=== PATIENT | female | born 1975 | race African-American/Black ===

== ENCOUNTER 2016-10-16 10:22 | Emergency (ER) | payer OTHER ==
[2016-10-16 10:35] VITALS: BP 169/120; PULSE 90; TEMP 97.7; BMI 39.9
--- NOTE | 2016-10-16 11:13 | PDOC ---
History of Present Illness - History of Present Illness Initial Comments: 10/16/16 11:17 The patient is a 41 year old female, with a significant past medical history of asthma, who presents to the emergency department with sinus congestion, itchy sore throat, cough, and difficulty breathing for 4 days. The patient reports being seen at [facility] ED a few days ago, where she was discharged home with a new inhaler, prednisone, and claritin D. She denies alleviation of her symptoms with the prescribed medication. She denies use of ibuprofen, however, reports taking a Tylenol today for a headache. The patient reports her chest and abdomen hurts from coughing. She also reports using a nebulizer treatment before bed last night with little to no alleviation. She denies chest pain, shortness of breath, and dizziness. She denies fever, chills, nausea, vomit, diarrhea and constipation. She denies dysuria, frequency , urgency and hematuria. Allergies: NKDA <Kiara Boogie - Last Filed: 10/16/16 11:17> <Jessica Sanchez - Last Filed: 10/18/16 17:29> - General Chief Complaint: Respiratory Stated Complaint: SOB (ASTHMA) Time Seen by Provider: 10/16/16 10:40 Past History <Kiara Boogie - Last Filed: 10/16/16 11:17> - Past Medical History Asthma: Yes - Psycho/Social/Smoking Cessation Hx Anxiety: No Suicidal Ideation: No Smoking History: Current every day smoker Number of Cigarettes Smoked Daily: 6 Information on smoking cessation initiated: No Hx Alcohol Use: Yes (SOCIAL) Drug/Substance Use Hx: No Substance Use Type: None <Jessica Sanchez - Last Filed: 10/18/16 17:29> - Past Medical History Allergies/Adverse Reactions: Allergies Allergy/AdvReac Type Severity Reaction Status Date / Time ZUCCHINI Allergy Itching Uncoded 10/16/16 10:35 Home Medications: Ambulatory Orders Azithromycin [Zithromax 250mg Tablets -] 250 mg PO UTDICT #6 tab 10/16/16 Triamcinolone Acetonide [Nasacort] 2 spray NS DAILY #1 bottle 10/16/16 Review of Systems - Review of Systems Able to Perform ROS?: Yes Comments:: 10/16/16 11:17 GENERAL/CONSTITUTIONAL: No fever or chills. No weakness. HEAD, EYES, EARS, NOSE AND THROAT: (+) sore throat. No change in vision. No ear pain or discharge. CARDIOVASCULAR: No chest pain or shortness of breath. RESPIRATORY: (+) cough and difficulty breathing, No wheezing, or hemoptysis. GASTROINTESTINAL: No nausea, vomiting, diarrhea or constipation. GENITOURINARY: No dysuria, frequency, or change in urination. MUSCULOSKELETAL: (+) abdominal pain and back pain secondary to cough. No joint swelling or pain. No muscle swelling. No neck pain. SKIN: No rash NEUROLOGIC: (+) mild headache. No vertigo, loss of consciousness, or change in strength/sensation. ENDOCRINE: No increased thirst. No abnormal weight change. HEMATOLOGIC/LYMPHATIC: No anemia, easy bleeding, or history of blood clots. ALLERGIC/IMMUNOLOGIC: No hives or skin allergy. <Kiara Boogie - Last Filed: 10/16/16 11:17> *Physical Exam - Vital Signs Last Vital Signs Temp Pulse Resp BP Pulse Ox 97.7 F 90 24 169/120 96 10/16/16 10:32 10/16/16 10:32 10/16/16 10:32 10/16/16 10:32 10/16/16 10:32 <Kiara Boogie - Last Filed: 10/16/16 11:17> - Vital Signs Last Vital Signs Temp Pulse Resp BP Pulse Ox 97.7 F 90 24 169/120 96 10/16/16 10:32 10/16/16 10:32 10/16/16 10:32 10/16/16 10:32 10/16/16 10:32 - Physical Exam Comments: GENERAL: Awake, alert, and fully oriented, in no acute distress HEAD: No signs of trauma EYES: PERRLA, EOMI, sclera anicteric, conjunctiva clear ENT: Auricles normal inspection, hearing grossly normal, nares patent, oropharynx clear without exudates. Moist mucosa NECK: Normal ROM, supple, no lymphadenopathy, JVD, or masses LUNGS: Intermittent hacking, productive cough. Good air entry B/L. With B/L exp wheezes and prolonged exp phase. Scattered rhonchi. HEART: Regular rate and rhythm, normal S1 and S2, no murmurs, rubs or gallops ABDOMEN: Soft, nontender, normoactive bowel sounds. No guarding, no rebound. No masses EXTREMITIES: Normal range of motion, no edema. No clubbing or cyanosis. No cords, erythema, or tenderness NEUROLOGICAL: Cranial nerves II through XII grossly intact. Normal speech, normal gait SKIN: Warm, Dry, normal turgor, no rashes or lesions noted. <Jessica Sanchez - Last Filed: 10/18/16 17:29> ED Treatment Course - LABORATORY CBC & Chemistry Diagram: 10/16/16 11:15 10/16/16 11:15 <Jessica Sanchez - Last Filed: 10/18/16 17:29> Medical Decision Making - Medical Decision Making 10/16/16 12:47 Called to bedside by patient. L hand IV infiltrated, with small swollen area just above the catheter. Warm pack applied. IV removed. IV fluid had just finished. 10/16/16 14:21 Pt reports improvement in symptoms with IVF, medication. Wheezing has improved. Stable for DC home with outpatient f/u. <Jessica Sanchez - Last Filed: 10/18/16 17:29> *DC/Admit/Observation/Transfer - Attestations Scribe Attestion: 10/16/16 11:18 Documentation prepared by Kiara Boogie, acting as medical radiation dosimetrist for Jessica Sanchez MD <Kiara Boogie - Last Filed: 10/16/16 11:17> - Discharge Dispostion Admit: No <Jessica Sanchez - Last Filed: 10/18/16 17:29> Diagnosis at time of Disposition: Bronchitis - Discharge Dispostion Disposition: HOME Condition at time of disposition: Stable - Prescriptions Prescriptions: Triamcinolone Acetonide [Nasacort] 2 spray NS DAILY #1 bottle Azithromycin [Zithromax 250mg Tablets -] 250 mg PO UTDICT #6 tab - Referrals Referrals: Kaylah Franco [Primary Care Provider] - - Patient Instructions Printed Discharge Instructions: DI for Acute Bronchitis
[2016-10-16] MEDS ORDERED: KETOROLAC TROMETHAMINE 30 MG/1 ML VIAL IVPUSH ONE (11:14)
[2016-10-16] MEDS ORDERED: guaiFENesin/CODEINE 10 ML UNIT-DOSE CUPS PO ONE (11:14)
[2016-10-16] MEDS ORDERED: SODIUM CHLORIDE 1,000 ML IV STA (11:14)
[2016-10-16] MEDS ORDERED: guaiFENesin/CODEINE 5 ML UNIT-DOSE CUPS PO ONE (11:41)
[2016-10-16] MEDS ORDERED: KETOROLAC TROMETHAMINE 30 MG/1 ML VIAL ONE ×2 (11:41)
[2016-10-16] MEDS: ALBUTEROL SO4 2.5/IPRATROPIUM 0.5 INH SOL 3 ML VIAL.NEB. NEB SCH ×3 (11:42→13:02)
[2016-10-16 11:47] LABS: BASOPHIL 0.3 % (0-2.0); EOSINOPHIL 0.1 % (0-4.5); MCH 30.2 pg (25.7-33.7); MCHC 33.4 g/dl (32.0-36.0); MEAN CELL VOLUME 90.5 fl (80-96); MEAN PLT VOLUME 7.8 fl (7.5-11.1); NEUTROPHILS 69.9 % (42.8-82.8); PLATELET COUNT 219 K/MM3 (134-434); RDW 13.5 % (11.6-15.6)
[2016-10-16] MEDS ORDERED: ALBUTEROL SO4 2.5/IPRATROPIUM 0.5 INH SOL 3 ML VIAL.NEB. NEB ONE (12:09)
[2016-10-16 12:12] LABS: ALBUMIN 3.1 g/dl (3.4-5.0); ANION GAP 7 (8-16); CALCIUM 8.3 mg/dL (8.5-10.1); CO2 29 mmol/L (21-32); CREATININE 0.6 mg/dL (0.55-1.02); GLUCOSE,RANDOM 116 mg/dL (74-106); SGOT/AST 22 U/L (15-37); SGPT/ALT 18 U/L (12-78)
[2016-10-16 12:13] LABS: ALK PHOS 67 U/L (45-117); BILIRUBIN,TOTAL 0.7 mg/dL (0.2-1.0); TOT PROT 6.6 g/dl (6.4-8.2)
== END 2016-10-16 14:35 | disposition home or self-care (01) ==
LOC: JER 10:22
PROC: 3E0F7GC Introduction of Other Therapeutic Substance into Respiratory Tract, Via Natural or Artificial Opening (ICD-10-PCS; principal; 2016-10-16)
PROC: 3E0333Z Introduction of Anti-inflammatory into Peripheral Vein, Percutaneous Approach (ICD-10-PCS; 2016-10-16)
PROC: 3E0337Z Introduction of Electrolytic and Water Balance Substance into Peripheral Vein, Percutaneous Approach (ICD-10-PCS; 2016-10-16)
DX: J40 Bronchitis, not specified as acute or chronic (principal)
CPT/HCPCS: 36415; 80053; 84703; 85025; 87070; 87430; 99283-25

== ENCOUNTER 2017-07-31 19:37 | Emergency (ER) | payer OTHER ==
[2017-07-31] MEDS ORDERED: ALBUTEROL SO4 2.5/IPRATROPIUM 0.5 INH SOL 3 ML VIAL.NEB. NEB ONE ×3 (19:44→20:18)
--- NOTE | 2017-07-31 19:45 | PDOC ---
Rapid Medical Evaluation Time Seen by Provider: 07/31/17 19:40 Medical Evaluation: Allergies Allergy/AdvReac Type Severity Reaction Status Date / Time ZUCAMAI Allergy Itching Uncoded 07/31/17 19:40 07/31/17 19:42 Pt c/o: wheezing and coughing x 3 days, no fever, no improvement with pump and nebulizer. no intubations Pt on brief exam: vss, + exp wheezing bilateral Pt ordered for: ronda Discharge Disposition - Diagnosis Asthma - Referrals - Patient Instructions - Post Discharge Activity
[2017-07-31 19:47] VITALS: BP 127/70; PULSE 89; TEMP 98.3; BMI 41.2
--- NOTE | 2017-07-31 19:57 | PDOC ---
History of Present Illness - General Chief Complaint: Wheezing Stated Complaint: ASTHMA Time Seen by Provider: 07/31/17 19:40 History Source: Patient Exam Limitations: No Limitations - History of Present Illness Initial Comments: 07/31/17 20:19 Patient is a 42-year-old female past medical history of asthma, who presents to emergency department with increased wheezing over the past 2-3 days. Patient thinks is due to her ALLERGY flare. She's been using her albuterol inhaler 5 times today and is waking up in the middle the night due to coughing. Never intubated for her asthma 1 prior hospitalization. Past History - Travel Traveled outside of the country in the last 30 days: No Close contact w/someone who was outside of country & ill: No - Past Medical History Allergies/Adverse Reactions: Allergies Allergy/AdvReac Type Severity Reaction Status Date / Time STEVEAMAI Allergy Itching Uncoded 07/31/17 19:40 Home Medications: Ambulatory Orders Fluticasone Prop 0.05% Nasal [Flonase -] 1 - 2 spray NS DAILY #1 spray.pump 01/08 predniSONE [Deltasone -] 40 mg PO DAILY #8 tablet 07/31/17 Asthma: Yes - Suicide/Smoking/Psychosocial Hx Smoking History: Current every day smoker Number of Cigarettes Smoked Daily: 3 Information on smoking cessation initiated: No Hx Alcohol Use: No Drug/Substance Use Hx: No Substance Use Type: None Review of Systems - Review of Systems Able to Perform ROS?: Yes Comments:: 07/31/17 19:57 CONSTITUTIONAL: Absent: fever, chills, diaphoresis, generalized weakness, malaise, loss of appetite HEENT: Absent: rhinorrhea, nasal congestion, throat pain, throat swelling, difficulty swallowing, mouth swelling, ear pain, eye pain, visual Changes CARDIOVASCULAR: Absent: chest pain, loss of consciousness, palpitations, irregular heart rate, peripheral edema RESPIRATORY: Present: cough, wheezing, shortness of breath Absent: dyspnea with exertion, orthopnea, stridor, hemoptysis GASTROINTESTINAL: Absent: abdominal pain, abdominal distension, nausea, vomiting, diarrhea, constipation, melena, hematochezia SKIN: Absent: rash, itching, pallor NEUROLOGIC: Absent: headache, focal weakness or paresthesias, dizziness, unsteady gait, seizure, mental status changes, bladder or bowel incontinence Is the patient limited Maldivian proficient: No *Physical Exam - Vital Signs Last Vital Signs Temp Pulse Resp BP Pulse Ox 98.3 F 89 26 H 127/70 99 07/31/17 19:40 07/31/17 19:40 07/31/17 19:40 07/31/17 19:40 07/31/17 19:40 - Physical Exam Comments: 07/31/17 19:57 GENERAL: Well developed, well nourished. Awake and alert. No acute distress. HEENT: Normocephalic, atraumatic. PERRLA, EOMI. No conjunctival pallor. Sclera are non- icteric. Moist mucous membranes. Oropharynx is clear. NECK: Supple. Full ROM. No JVD. Carotid pulses 2+ and symmetric, without bruits. No thyromegaly. No lymphadenopathy. CARDIOVASCULAR: Regular rate and rhythm. No murmurs, rubs, or gallops. Distal pulses are 2+ and symmetric. PULMONARY: No evidence of respiratory distress. Lungs with scattered expiratory wheezing b/ l. Fair aeration to bases. SKIN: Warm and dry. Normal capillary refill. No rashes. No jaundice. NEUROLOGICAL: Alert, awake, appropriate. Cranial nerves 2-12 intact. No deficits to light touch and temperature in face, upper extremities and lower extremities. No motor deficits in the in face, upper extremities and lower extremities. Normoreflexic in the upper and lower extremities. Normal speech. Toes are down- going bilaterally. Gait is normal without ataxia. Medical Decision Making - Medical Decision Making 07/31/17 20:20 Patient 42-year-old female with past medical history of asthma, who presents emergency department today with asthma exacerbation. One DuoNeb given in triage with relief of symptoms. Lung exam with scattered wheezing. Second DuoNeb and prednisone given at this time. Repeat lung exam now with no wheezing. We'll discharge home with prednisone and primary care follow-up. Return instructions given. Patient says all discharge instructions and all questions were answered. *DC/Admit/Observation/Transfer Diagnosis at time of Disposition: Asthma Qualifiers: Asthma severity: mild Asthma persistence: intermittent Asthma complication type : with acute exacerbation Qualified Code(s): J45.21 - Mild intermittent asthma with (acute) exacerbation - Discharge Dispostion Disposition: HOME Condition at time of disposition: Stable Decision to Admit order: No - Prescriptions Prescriptions: Fluticasone Prop 0.05% Nasal [Flonase -] 1 - 2 spray NS DAILY #1 spray.pump predniSONE [Deltasone -] 40 mg PO DAILY #8 tablet - Referrals Referrals: Liborio Sena MD [Staff Physician] - - Patient Instructions Printed Discharge Instructions: DI for Asthma -- Adult Additional Instructions: You have an asthma exacerbation. Please use your inhaler every 4 hours for the next week to help reduce your symptoms. Please continue the prednisone tomorrow. Follow the dosing instructions on the packaging. Use the Flonase each nostril daily. Continue your Claritin. Please follow up with her primary care doctor this week. Return to the emergency department if you have increased difficulty breathing, shortness of breath, fevers, chills, or any changes in your symptoms. - Post Discharge Activity Forms/Work/School Notes: Back to Work
[2017-07-31] MEDS ORDERED: predniSONE 20 MG TABLET (UD) PO ONE (20:17)
[2017-07-31] MEDS ORDERED: predniSONE 20 MG TABLET (UD) ONE (20:18)
== END 2017-07-31 20:47 | disposition home or self-care (01) ==
LOC: JERFT 19:37
PROC: 3E0F7GC Introduction of Other Therapeutic Substance into Respiratory Tract, Via Natural or Artificial Opening (ICD-10-PCS; principal; 2017-07-31)
DX: J45.21 Mild intermittent asthma with (acute) exacerbation (principal)
CPT/HCPCS: 99281-25; J7620

== ENCOUNTER 2017-11-27 11:14 | Emergency (ER) | payer OTHER ==
[2017-11-27] MEDS ORDERED: ALBUTEROL SO4 2.5/IPRATROPIUM 0.5 INH SOL 3 ML VIAL.NEB. NEB ONE ×3 (11:20→12:04)
[2017-11-27 11:27] VITALS: BP 129/85; PULSE 67; TEMP 98.4; BMI 41.2
[2017-11-27] MEDS ORDERED: predniSONE 20 MG TABLET (UD) PO ONE (12:03)
--- NOTE | 2017-11-27 12:03 | PDOC ---
History of Present Illness - General Chief Complaint: Wheezing Stated Complaint: ASTHMA Time Seen by Provider: 11/27/17 11:55 History Source: Patient Exam Limitations: No Limitations - History of Present Illness Initial Comments: CHIEF COMPLAINT: 42 y/o afebrile female with PMH asthma c/o wheezing for the past few days. HISTORY OF PRESENT ILLNESS: The patient states she's been using her albuterol nebulizer and inhaler with no relief. SHe denies fever, productive cough and all other symptoms. Vital signs on arrival are within normal limits. REVIEW OF SYSTEMS: GENERAL/CONSTITUTIONAL: No fever/chills. No weakness. No weight change. HEAD, EYES, EARS, NOSE AND THROAT: No change in vision. No ear pain or discharge. No sore throat. CARDIOVASCULAR: +SOB. No chest pain. RESPIRATORY: + cough and wheezing. No hemoptysis GASTROINTESTINAL: No abd pain, nausea, vomiting, diarrhea. GENITOURINARY: No dysuria, frequency, or change in urination. MUSCULOSKELETAL: No joint or muscle swelling or pain. No neck or back pain. SKIN: No rash or easy bruising. NEUROLOGIC: No headache, vertigo, loss of consciousness, or loss of sensation. PHYSICAL EXAM: GENERAL: The patient is awake, alert, and fully oriented, in no acute distress. SHe is morbildy obese and SOB while talking. HEAD: Normal with no signs of trauma. ENT: Pupils equal, round and reactive to light, extraocular movements intact, sclera anicteric, conjunctiva clear. Neck supple. LUNGS: Expiratory wheezing mostly on right side. CV: RRR, S1/S2, no MRG. Cap refill < 2 sec. ABDOMEN: Soft, non-distended, non-tender even to deep palpation, no hepatomegaly or splenomegaly, no masses. EXTREMITIES: Normal range of motion, no edema. NEUROLOGICAL: Normal speech, normal gait. CN II-XII grossly intact. SKIN: Warm, dry, normal turgor, no rashes or lesions noted. Past History - Past Medical History Allergies/Adverse Reactions: Allergies Allergy/AdvReac Type Severity Reaction Status Date / Time ZUCCHINI Allergy Unknown Itching Uncoded 11/27/17 12:31 Home Medications: Ambulatory Orders Fluticasone Prop 0.05% Nasal [Flonase -] 1 - 2 spray NS DAILY #1 spray.pump 01/08 Albuterol Sulfate Inhaler - [Ventolin Hfa Inhaler -] 1 - 2 inh PO Q4H 11/27/17 predniSONE [Deltasone -] 60 mg PO DAILY #12 tablet 11/27/17 Asthma: Yes COPD: No - Suicide/Smoking/Psychosocial Hx Smoking History: Former smoker Have you smoked in the past 12 months: Yes Number of Cigarettes Smoked Daily: 3 If you are a former smoker, when did you quit?: 11/22/17 Information on smoking cessation initiated: No Hx Alcohol Use: No Drug/Substance Use Hx: No Substance Use Type: None *Physical Exam - Vital Signs Last Vital Signs Temp Pulse Resp BP Pulse Ox 98.4 F 67 18 129/85 98 11/27/17 11:23 11/27/17 11:23 11/27/17 11:23 11/27/17 11:23 11/27/17 11:23 ED Treatment Course - Medications Given in the ED: ED Medications Discontinued Medications Generic Name Dose Route Start Last Admin Trade Name Freq PRN Reason Stop Dose Admin Albuterol/Ipratropium 1 amp 11/27/17 11:25 11/27/17 11:25 Duoneb - NEB 11/27/17 11:26 1 amp NOW ONE Administration Medical Decision Making - Medical Decision Making A/P: 42 y/o female with asthma exacerbation. Plan is as follows: 1. Duoneb x 4 2. PO prednisone. Patient states she feels much better. Lungs now CTA. Will d/c to home with 4 day course of prednisone. The patient verbalizes understanding of all instructions, has no further questions and is awaiting discharge. *DC/Admit/Observation/Transfer Diagnosis at time of Disposition: Asthma - Discharge Dispostion Disposition: HOME Condition at time of disposition: Improved - Prescriptions Prescriptions: predniSONE [Deltasone -] 60 mg PO DAILY #12 tablet - Referrals Referrals: Yadira Vora [Primary Care Provider] - - Patient Instructions Printed Discharge Instructions: DI for Asthma -- Adult Additional Instructions: Discharge Instructions: -A 4 day course of steroids has been sent to your pharmacy; please start it tomorrow -Return to the ER with any worsening or concerning symptoms - Post Discharge Activity
[2017-11-27] MEDS ORDERED: predniSONE 20 MG TABLET (UD) ONE (12:04)
[2017-11-27] MEDS: ALBUTEROL SO4 2.5/IPRATROPIUM 0.5 INH SOL 3 ML VIAL.NEB. NEB SCH ×3 (12:07→12:20)
== END 2017-11-27 13:12 | disposition home or self-care (01) ==
LOC: JERFT 11:14 → JER 11:14 → JERFT 13:12
PROC: 3E0F7GC Introduction of Other Therapeutic Substance into Respiratory Tract, Via Natural or Artificial Opening (ICD-10-PCS; principal; 2017-11-27)
PROC: 3E0F7GC Introduction of Other Therapeutic Substance into Respiratory Tract, Via Natural or Artificial Opening (ICD-10-PCS; 2017-11-27)
DX: J45.901 Unspecified asthma with (acute) exacerbation (principal)
CPT/HCPCS: 99281-25; J7620

== ENCOUNTER 2018-06-26 07:13 | Day surgery (SDC) | payer OTHER ==
[2018-06-24 13:29] VITALS: BMI 49.6
[2018-06-26] MEDS ORDERED: BUPIVACAINE HCL/PF (5 MG/ML) 30 ML VIAL IJ ONE (08:44)
[2018-06-26] MEDS ORDERED: MIDAZOLAM HCL 2 MG/2 ML SINGLE DOSE VIAL ONE ×3 (08:44→09:13)
[2018-06-26] MEDS ORDERED: PROPOFOL 20 ML ONE ×2 (09:13→10:08)
[2018-06-26] MEDS ORDERED: ceFAZolin SODIUM 1 GM VIAL ONE (10:01)
[2018-06-26] MEDS ORDERED: PROMETHAZINE HCL 25 MG/1 ML VIAL IVPUSH PRN (11:02)
[2018-06-26] MEDS ORDERED: ONDANSETRON 4 MG/2 ML VIAL IVPUSH PRN (11:02)
[2018-06-26] MEDS ORDERED: oxyCODONE HCL 5 MG TABLET PO PRN ×2 (11:02)
[2018-06-26 13:12] VITALS: BP 140/81; TEMP 97.6
[2018-06-26 13:13] VITALS: PULSE 96
--- NOTE | 2018-06-27 12:06 | OP ---
DATE OF OPERATION: 06/26/2018 LOCATION: [facility]. SURGEON: Jose Angel Romero MD COM WRITER: None. FINDINGS: 1. Left shoulder adhesive capsulitis. 2. Left shoulder impingement. 3. Left shoulder acromioclavicular joint disease. 4. Left shoulder superior labral tear, anterior/posterior synovitis. POSTOPERATIVE DIAGNOSES: 1. Left shoulder adhesive capsulitis. 2. Left shoulder impingement. 3. Left shoulder acromioclavicular joint disease. 4. Left shoulder superior labral tear, anterior/posterior synovitis. PROCEDURE: 1. Left shoulder arthroscopy with lysis and resection of adhesions. CPT code 62329. 2. Left shoulder arthroscopy with subacromial decompression. CPT code 34829. 3. Left shoulder arthroscopy with debridement. CPT code 98880. FINDINGS: 1. Glenohumeral synovitis. 2. Superior labral tear, anterior/posterior type 1. 3. Anterior/posterior labral fraying. 4. Partial rotator cuff tear, 10%. 5. Partial biceps tear, 10%. 6. Type 2 acromion with anterolateral sprain. 7. Thickened scar tissue of subacromial space with diffuse scar tissue. 8. Inferior spurs of clavicle with acromioclavicular joint disease. PROCEDURE: Informed consent was obtained. The patient was taken to the operating room, where the upper extremity was prepped and draped in a sterile fashion. A scalene block was performed by Anesthesia. Manipulation under anesthesia was allowed for full range of motion. Using standard arthroscopic technique, a posterior incision portal was made, which allowed for introduction of a camera into the glenohumeral joint. Under direct visualization, an anterior incision and portal was made. Extensive and thickened synovitis was debrided. Fraying of the labrum was debrided and the superior labrum from anterior to posterior was identified with all loose areas debrided. Any labral tears were taken to a stable rim including identified SLAP lesions. All loose cartilage was debrided. The rotator cuff was identified and evaluated, as were the subacromial and bursal surfaces. The posterior incision portal was redirected to the subacromial space, where a lateral incision and portal was made. Excessive and thickened synovium was removed throughout the subacromial space including the anterior scar tissue, posterior bursa and lateral bursa. The type 2 acromion was converted to a flattened type 1, removing the anterior and lateral spurring. An accessory portal was made at the acromioclavicular joint, removing the inferior spur of the distal clavicle at the acromioclavicular joint allowing for a distal clavicle partial resection. Please note that 1 cm of undersurface of clavicle was removed extending into the intra articular portion and through an accessory portal. The shoulder was once again reexamined and all impingement was removed. The shoulder was drained. A single suture was placed in all portals and a sterile dressing was placed. The patient was transferred to the recovery room without complication. The PA listed above was present and assisted at surgery. Their presence was absolutely medically necessary for the completion of the procedure. They helped hold the arthroscopy, pass instruments (and implants when indicated) and the procedure could not have been completed without their assistance. JOSE ANGEL ROMERO M.D. [id number]
--- NOTE | 2018-06-30 16:27 | PATH ---
Surgical Pathology Report Patient Name: ANA MARIA BALL Med. Rec. #: [id number] /Age/Gender: 1975 (Age: 43) / F Account: [id number] Location: [facility] AMBULATORY Taken: 06/26/2018 Received: 06/26/2018 Reported: 06/30/2018 Physicians: Lamonte Butler M.D. Specimen(s) Received LEFT SHOULDER SHAVINGS Clinical History Left shoulder impingement Final Diagnosis SHOULDER SHAVINGS, LEFT, ARTHROSCOPY: FRAGMENTS OF BENIGN CARTILAGE, DENSE FIBROCONNECTIVE TISSUE, ADIPOSE TISSUE, REACTIVE SYNOVIUM, BONE, AND SKELETAL MUSCLE. Electronically Signed Tanya Jones M.D. Gross Description Received in formalin, labeled "left shoulder shavings," is a 4.5 x 4.0 x 0.3 cm. aggregate of andrea-yellow soft tissue fragments. A business banking representative portion is submitted in one cassette. /06/29/2018 saudi06/29/2018
== END 2018-06-26 12:10 | disposition home or self-care (01) ==
LOC: FASU 07:13
PROVIDERS: ATTEND Orthopaedic Surgery
PROC: 0RBK4ZZ Excision of Left Shoulder Joint, Percutaneous Endoscopic Approach (ICD-10-PCS; 2018-06-26)
PROC: 0PBB4ZZ Excision of Left Clavicle, Percutaneous Endoscopic Approach (ICD-10-PCS; principal; 2018-06-26 09:00)
DX: M75.02 Adhesive capsulitis of left shoulder (principal); M75.42 Impingement syndrome of left shoulder; M19.012 Primary osteoarthritis, left shoulder; M24.112 Other articular cartilage disorders, left shoulder; M65.812 Other synovitis and tenosynovitis, left shoulder
CPT/HCPCS: 84703; 88304-TC; 94760

== ENCOUNTER 2019-03-14 10:25 | Emergency (ER) | payer OTHER ==
[2019-03-14 10:39] VITALS: BP 160/75; PULSE 96; TEMP 97.9; BMI 49.8
[2019-03-14] MEDS ORDERED: KETOROLAC TROMETHAMINE 60 MG/2 ML VIAL ONE (10:46)
[2019-03-14] MEDS ORDERED: KETOROLAC TROMETHAMINE 60 MG/2 ML VIAL IM ONE (10:46)
--- NOTE | 2019-03-14 11:00 | PDOC ---
History of Present Illness - General Chief Complaint: Cold Symptoms Stated Complaint: COLD SYMPTOMS Time Seen by Provider: 03/14/19 10:43 Past History - Past Medical History Allergies/Adverse Reactions: Allergies Allergy/AdvReac Type Severity Reaction Status Date / Time No Known Drug Allergies Allergy Unknown Verified 03/14/19 10:35 ZUCCHINI Allergy Unknown HEADACHE Uncoded 03/14/19 10:35 Home Medications: Ambulatory Orders Albuterol Sulfate Inhaler - [Ventolin HFA Inhaler -] 1 - 2 inh PO Q4H PRN Montelukast Sodium [Singulair] 10 mg PO DAILY 06/24/18 Ibuprofen [Motrin -] 800 mg PO Q6H #30 tablet 03/14/19 Methylprednisolone [Medrol Dose Marvin] 4 mg PO ASDIR #21 tablet 03/14/19 Anemia: No Asthma: Yes Cancer: No Cardiac Disorders: No CVA: No COPD: No CHF: No Dementia: No Diabetes: No GI Disorders: No Disorders: No HTN: No Hypercholesterolemia: No Liver Disease: No Seizures: No Thyroid Disease: No - Surgical History Abdominal Surgery: No Appendectomy: No Cardiac Surgery: No Cholecystectomy: No Lung Surgery: No Neurologic Surgery: No Orthopedic Surgery: (TENDON REPAIR LEFT FOOT 2008) - Immunization History Immunization Up to Date: Yes - Psycho Social/Smoking Cessation Hx Smoking History: Never smoked Have you smoked in the past 12 months: Yes Number of Cigarettes Smoked Daily: 3 If you are a former smoker, when did you quit?: 11/22/17 Hx Alcohol Use: No Drug/Substance Use Hx: No Substance Use Type: Alcohol, Marijuana Hx Substance Use Treatment: No *Physical Exam - Vital Signs Last Vital Signs Temp Pulse Resp BP Pulse Ox 97.9 F 96 H 16 160/75 98 03/14/19 10:36 03/14/19 10:36 03/14/19 10:36 03/14/19 10:36 03/14/19 10:36 ED Treatment Course - Medications Given in the ED: ED Medications Discontinued Medications Generic Name Dose Route Start Last Admin Trade Name Freq PRN Reason Stop Dose Admin Ketorolac Tromethamine 60 mg 03/14/19 10:46 03/14/19 10:49 Toradol Injection - IM 03/14/19 10:47 60 mg ONCE ONE Administration Medical Decision Making - Medical Decision Making 03/14/19 11:52 43-year-old female denies any past medical history woke up with severe sore throat this morning. No fever or chills see exam Uvulitis ? 2/2 snoring Strep neg Dose of toradol given here Dc w/ pain control To return as needed Discharge - Discharge Information Problems reviewed: Yes Clinical Impression/Diagnosis: Uvulitis Condition: Good Disposition: HOME - Additional Discharge Information Prescriptions: Ibuprofen [Motrin -] 800 mg PO Q6H #30 tablet Methylprednisolone [Medrol Dose Marvin] 4 mg PO ASDIR #21 tablet - Follow up/Referral Referrals: Yadira Vora [Primary Care Provider] - - Patient Discharge Instructions Patient Printed Discharge Instructions: DI for Uvulitis Additional Instructions: Have a condition called uvulitis which is inflammation of your uvula. This condition can be caused by trauma such as snoring, infection or allergic reaction Your strep test was negative Please take medications as directed Return as needed - Post Discharge Activity
== END 2019-03-14 11:19 | disposition home or self-care (01) ==
LOC: JERFT 10:25
PROC: 3E0233Z Introduction of Anti-inflammatory into Muscle, Percutaneous Approach (ICD-10-PCS; principal; 2019-03-14)
DX: K12.2 Cellulitis and abscess of mouth (principal); J45.901 Unspecified asthma with (acute) exacerbation; Z91.018 Allergy to other foods
CPT/HCPCS: 87070; 87880; 99281-25

== ENCOUNTER 2020-06-23 01:04 | Inpatient (IN) | payer OTHER ==
[2020-06-23 01:45] LABS: BASO % 0.7 % (0-2.0); HEMOGLOBIN 12.3 GM/dL (10.7-15.3); LYMPH % 25.3 % (8-40); MCH 29.4 pg (25.7-33.7); MCHC 33.2 g/dl (32.0-36.0); MEAN CELL VOLUME 88.8 fl (80-96); MEAN PLT VOLUME 7.7 fl (7.5-11.1); MONO % 4.9 % (3.8-10.2); NEUT % 65.1 % (42.8-82.8); PLATELET COUNT 305 K/MM3 (134-434); RBC 4.16 M/mm3 (3.60-5.2); RDW 14.4 % (11.6-15.6); WHITE BLOOD COUNT 9.7 K/mm3 (4.0-10.0)
[2020-06-23] MEDS ORDERED: morphine CARPU-JECT 4 MG/1 ML DISP.SYRIN IVPUSH ONE (01:46)
[2020-06-23] MEDS ORDERED: morphine SULFATE 4 MG/ML VIAL ONE ×2 (01:46→18:55)
[2020-06-23] MEDS ORDERED: CEFAZOLIN 3 GM in DEXTROSE 5%-WATER - 50 ML IVPB ONE (01:58)
[2020-06-23 01:59] LABS: INR 0.9 (0.83-1.09); PROTHROMBIN TIME (PATIENT) 10.9 SEC (9.7-13.0)
[2020-06-23 02:01] LABS: ACTIVATED PTT 29.3 SECONDS (25.2-36.5); POTASSIUM 3.8 mmol/L (3.5-5.1)
[2020-06-23 02:02] LABS: CALCIUM 9.3 mg/dL (8.5-10.1)
[2020-06-23 02:03] LABS: ALBUMIN 3.5 g/dl (3.4-5.0); BLOOD UREA NITROGEN 15.3 mg/dL (7-18)
[2020-06-23 02:08] LABS: BILIRUBIN,TOTAL 0.3 mg/dL (0.2-1); TOT PROT 7.7 g/dl (6.4-8.2)
[2020-06-23] MEDS ORDERED: CEFAZOLIN 2 GM/D5W 2 GM/50 ML ML IVPB ONE (02:13)
[2020-06-23] MEDS ORDERED: CEFAZOLIN 1 GM/D5W 1 GM/50 ML BAG ONE (02:14)
[2020-06-23] MEDS ORDERED: LACTATED RINGERS SOLUTION 1000 ML INFUS.BAG IV ONE (04:32)
[2020-06-23] MEDS ORDERED: ACETAMINOPHEN 1000 MG/100 ML VIAL (NON FORMULARY) IVPB PRN (04:43)
[2020-06-23] MEDS ORDERED: DEXTROSE 5%-0.45% SALINE 1,000 ML IV SCH (04:45)
[2020-06-23] MEDS ORDERED: ALBUTEROL SO4 2.5/IPRATROPIUM 0.5 INH SOL 3 ML VIAL.NEB. NEB PRN (05:27)
[2020-06-23] MEDS ORDERED: morphine SULFATE 4 MG/ML VIAL IVPUSH PRN (06:00)
[2020-06-23] MEDS ORDERED: KETAMINE HCL 200 MG/20 ML VIAL IVPUSH ONE (06:47)
[2020-06-23] MEDS ORDERED: KETAMINE HCL 200 MG/20 ML VIAL ONE (06:50)
[2020-06-23 22:12] VITALS: BMI 46.9
[2020-06-24] MEDS ORDERED: ePHEDrine SULFATE 50 MG/1 ML AMPULE ONE (08:57)
[2020-06-24] MEDS ORDERED: SUCCINYLCHOLINE CHLORIDE 200 MG/10 ML SYRINGE ONE (08:57)
[2020-06-24] MEDS ORDERED: ATROPINE SULFATE 1 MG/10 ML DISP.SYRIN ONE (08:57)
[2020-06-24] MEDS ORDERED: MIDAZOLAM HCL 2 MG/2 ML SINGLE DOSE VIAL ONE (08:57)
[2020-06-24] MEDS ORDERED: ROCURONIUM BROMIDE 50 MG/5 ML SYRINGE ONE (09:05)
[2020-06-24] MEDS ORDERED: ACETAMINOPHEN INJECTION 100 ML IVPB ONE (09:13)
[2020-06-24] MEDS ORDERED: PROPOFOL 20 ML ONE ×3 (09:18→10:59)
[2020-06-24] MEDS ORDERED: LIDOCAINE HCL/PF 2% SDV 5ML VIAL ONE (09:20)
[2020-06-24] MEDS ORDERED: ceFAZolin SODIUM 1 GM VIAL IVPB ONE ×2 (09:45→09:55)
[2020-06-24] MEDS ORDERED: BACITRACIN 50,000 UNITS VIAL TP ONE (10:03)
[2020-06-24] MEDS ORDERED: GLYCOPYRROLATE 0.2 MG/1 ML VIAL ONE (10:53)
[2020-06-24] MEDS ORDERED: NEOSTIGMINE METHYLSULFATE 0.5 MG/1 ML - 10 ML MDV ONE (10:53)
[2020-06-24] MEDS ORDERED: ONDANSETRON 4 MG/2 ML VIAL IVPUSH PRN (11:32)
[2020-06-24] MEDS ORDERED: HYDROmorphone HCl 2 MG/ML VIAL IVPB ONE (11:37)
[2020-06-24] MEDS ORDERED: HYDROmorphone HCl 2 MG/ML VIAL ONE (11:41)
[2020-06-24] MEDS ORDERED: LACTATED RINGERS SOLUTION 1,000 ML IV SCH (11:45)
[2020-06-24] MEDS ORDERED: ALBUTEROL SO4 2.5/IPRATROPIUM 0.5 INH SOL 3 ML VIAL.NEB. NEB PRN (11:50)
[2020-06-24] MEDS: DEXTROSE 5%-0.45% SALINE 1,000 ML IV SCH (12:25)
[2020-06-24] MEDS: morphine SULFATE 4 MG/ML VIAL IVPUSH PRN ×2 (18:03→23:32)
[2020-06-24] MEDS: ceFAZolin 2 GRAM PREMIX BAG IVPB SCH (18:04)
[2020-06-25] MEDS: ceFAZolin 2 GRAM PREMIX BAG IVPB SCH ×3 (01:57→18:57)
[2020-06-25] MEDS: morphine SULFATE 4 MG/ML VIAL IVPUSH PRN ×3 (06:48→19:32)
[2020-06-25] MEDS: DEXTROSE 5%-0.45% SALINE 1,000 ML IV SCH (06:49)
[2020-06-26] MEDS: morphine SULFATE 4 MG/ML VIAL IVPUSH PRN (01:46)
[2020-06-26] MEDS: ceFAZolin 2 GRAM PREMIX BAG IVPB SCH (01:46)
[2020-06-26 14:35] VITALS: BP 143/81; PULSE 92; TEMP 98.9
== END 2020-06-26 18:03 | disposition home health service (06) | DRG 313 ==
LOC: JER 01:04 → JERBED 04:34 → J6S 20:43
PROVIDERS: ADMIT Hospitalist; ATTEND Family Medicine
PROC: 0QSG04Z Reposition Right Tibia with Internal Fixation Device, Open Approach (ICD-10-PCS; 2020-06-24)
PROC: 0Y9K0ZZ Drainage of Right Ankle Region, Open Approach (ICD-10-PCS; 2020-06-24)
PROC: 0QSJ04Z Reposition Right Fibula with Internal Fixation Device, Open Approach (ICD-10-PCS; principal; 2020-06-24 09:00)
DX: S82.841A Displaced bimalleolar fracture of right lower leg, initial encounter for closed fracture (principal); J45.909 Unspecified asthma, uncomplicated; I10 Essential (primary) hypertension; W01.0XXA Fall on same level from slipping, tripping and stumbling without subsequent striking against object, initial encounter; Y92.89 Other specified places as the place of occurrence of the external cause; E66.01 Morbid (severe) obesity due to excess calories; Z68.42 Body mass index [BMI] 45.0-49.9, adult
CPT/HCPCS: 36415; 71045-TC-FY; 73610-TC-RT-FY; 73700-TC-RT; 76000-TC-FY; 80053; 84703; 85025; 85610; 85730; 86850; 86900; 86901; 93005; 93010; 94010; 94640; 94760; 97116-GP; 97162-GP; 99285-25; C9803; J0131; U0003; U0005

== ENCOUNTER 2020-08-01 12:38 | Emergency (ER) | payer OTHER ==
[2020-08-01 12:43] VITALS: BP 136/94; PULSE 97; TEMP 98.4; BMI 48.6
== END 2020-08-01 13:52 | disposition home or self-care (01) ==
LOC: JER 12:38
DX: J30.1 Allergic rhinitis due to pollen (principal)
CPT/HCPCS: 87880; 99283-25

== ENCOUNTER 2020-09-29 20:08 | Emergency (ER) | payer OTHER ==
[2020-09-29 20:16] VITALS: TEMP 98.7; BMI 48.6
[2020-09-29] MEDS ORDERED: methylPREDNISolone NA SUCC 125 MG/2 ML VIAL IVPUSH ONE (20:38)
[2020-09-29] MEDS: ALBUTEROL SO4 2.5/IPRATROPIUM 0.5 INH SOL 3 ML VIAL.NEB. NEB SCH ×2 (20:41→20:53)
[2020-09-29] MEDS ORDERED: methylPREDNISolone NA SUCC 125 MG/2 ML VIAL ONE (20:49)
[2020-09-29 21:17] LABS: BASO % 0.9 % (0-2.0); EOS % 6.8 % (0-4.5); HEMATOCRIT 38.8 % (32.4-45.2); HEMOGLOBIN 12.8 GM/dL (10.7-15.3); LYMPH % 27.7 % (8-40); MCHC 32.9 g/dl (32.0-36.0); MEAN CELL VOLUME 88.1 fl (80-96); MONO % 5.7 % (3.8-10.2); NEUT % 58.9 % (42.8-82.8); PLATELET COUNT 279 10^3/uL (134-434); RDW 14.6 % (11.6-15.6); WHITE BLOOD COUNT 9.8 K/mm3 (4.0-10.0)
[2020-09-29 21:24] VITALS: PULSE 86
[2020-09-29 21:33] LABS: CHLORIDE 105 mmol/L (98-107); SODIUM 137 mmol/L (136-145)
[2020-09-29 21:37] LABS: CALCIUM 8.8 mg/dL (8.5-10.1); GLUCOSE,RANDOM 76 mg/dL (74-106)
[2020-09-29 21:38] LABS: ALBUMIN 3.5 g/dl (3.4-5.0); BLOOD UREA NITROGEN 11.6 mg/dL (7-18); CO2 29 mmol/L (21-32)
[2020-09-29 21:41] LABS: CREATININE 0.8 mg/dL (0.55-1.3); SGOT/AST 41 U/L (15-37); SGPT/ALT 21 U/L (13-61)
[2020-09-29 21:43] LABS: BILIRUBIN,TOTAL 0.5 mg/dL (0.2-1); TOT PROT 7.6 g/dl (6.4-8.2)
[2020-09-29 21:44] LABS: ALK PHOS 88 U/L (45-117)
[2020-09-29 22:37] LABS: ANION GAP 3 MMOL/L (8-16)
[2020-09-29 23:54] VITALS: BP 142/88
== END 2020-09-29 23:55 | disposition home or self-care (01) ==
LOC: JER 20:08
PROC: 3E0F7GC Introduction of Other Therapeutic Substance into Respiratory Tract, Via Natural or Artificial Opening (ICD-10-PCS; principal; 2020-09-29)
PROC: 3E033GC Introduction of Other Therapeutic Substance into Peripheral Vein, Percutaneous Approach (ICD-10-PCS; 2020-09-29)
DX: J45.909 Unspecified asthma, uncomplicated (principal)
CPT/HCPCS: 36415; 71045-TC-FY; 71275-TC; 80053; 82550; 82553; 84132; 84484; 85025; 85379; 93005; 93010; 99285-25; Q9967

== ENCOUNTER 2020-10-25 11:24 | Emergency (ER) | payer OTHER ==
[2020-10-25 11:47] VITALS: BP 125/75; PULSE 103; TEMP 97.8; BMI 48.6
[2020-10-25] MEDS ORDERED: predniSONE 20 MG TABLET (UD) PO ONE (12:26)
[2020-10-25] MEDS ORDERED: predniSONE 20 MG TABLET (UD) ONE (12:27)
== END 2020-10-25 12:29 | disposition home or self-care (01) ==
LOC: JER 11:24 → JERFT 11:24
DX: J45.20 Mild intermittent asthma, uncomplicated (principal)
CPT/HCPCS: 99283-25

== ENCOUNTER 2020-12-23 09:57 | Emergency (ER) | payer OTHER ==
[2020-12-23 10:15] VITALS: BP 150/90; PULSE 92; TEMP 98.6; BMI 50.1
[2020-12-23] MEDS ORDERED: TETRACAINE 0.5% OPHTH SOLN 2 ML BOTTLE OS ONE (11:17)
[2020-12-23] MEDS ORDERED: FLUORESCEIN NA 1 EA STRIP OS ONE (11:17)
[2020-12-23] MEDS ORDERED: FLUORESCEIN NA 1 EA STRIP ONE (11:21)
[2020-12-23] MEDS ORDERED: TETRACAINE 0.5% OPHTH SOLN 2 ML BOTTLE ONE (11:21)
[2020-12-23] MEDS ORDERED: KETOROLAC TROMETHAMINE 60 MG/2 ML VIAL IM ONE (11:40)
[2020-12-23] MEDS ORDERED: KETOROLAC TROMETHAMINE 30 MG/1 ML VIAL ONE (11:44)
== END 2020-12-23 12:28 | disposition home or self-care (01) ==
LOC: JER 09:57
PROC: 3E0233Z Introduction of Anti-inflammatory into Muscle, Percutaneous Approach (ICD-10-PCS; principal; 2020-12-23)
DX: S05.02XA Injury of conjunctiva and corneal abrasion without foreign body, left eye, initial encounter (principal); W26.8XXA Contact with other sharp object(s), not elsewhere classified, initial encounter
CPT/HCPCS: 99284-25

== ENCOUNTER 2021-03-13 15:22 | Emergency (ER) | payer OTHER ==
[2021-03-13 15:41] VITALS: BP 135/88; PULSE 91; TEMP 98.2; BMI 47.2
[2021-03-13] MEDS ORDERED: predniSONE 20 MG TABLET (UD) PO ONE (16:25)
[2021-03-13] MEDS ORDERED: predniSONE 20 MG TABLET (UD) ONE (16:52)
[2021-03-13] MEDS: ALBUTEROL SO4 2.5/IPRATROPIUM 0.5 INH SOL 3 ML VIAL.NEB. NEB SCH (17:07)
== END 2021-03-13 19:21 | disposition home or self-care (01) ==
LOC: JERFT 15:22 → JER 15:22
PROC: 3E0F7GC Introduction of Other Therapeutic Substance into Respiratory Tract, Via Natural or Artificial Opening (ICD-10-PCS; principal; 2021-03-13)
DX: J45.41 Moderate persistent asthma with (acute) exacerbation (principal)
CPT/HCPCS: 71046-TC-FY; 99284-25

== ENCOUNTER 2021-05-15 09:02 | Emergency (ER) | payer OTHER ==
[2021-05-15 09:16] VITALS: BP 129/87; PULSE 90; TEMP 97.4; BMI 48.6
[2021-05-15] MEDS ORDERED: predniSONE 20 MG TABLET (UD) PO ONE (09:43)
[2021-05-15] MEDS ORDERED: ALBUTEROL SO4 2.5/IPRATROPIUM 0.5 INH SOL 3 ML VIAL.NEB. NEB SCH (09:45)
[2021-05-15] MEDS ORDERED: predniSONE 20 MG TABLET (UD) ONE (09:49)
== END 2021-05-15 11:25 | disposition home or self-care (01) ==
LOC: JER 09:02
PROC: 3E0F7GC Introduction of Other Therapeutic Substance into Respiratory Tract, Via Natural or Artificial Opening (ICD-10-PCS; principal; 2021-05-15)
DX: J45.998 Other asthma (principal)
CPT/HCPCS: 82962; 94640; 99283-25

== ENCOUNTER 2021-09-03 23:02 | Emergency (ER) | payer OTHER ==
[2021-09-03 23:09] VITALS: BP 149/95; PULSE 86; TEMP 97.7; BMI 44.3
[2021-09-04] MEDS ORDERED: predniSONE 20 MG TABLET (UD) PO ONE (00:17)
[2021-09-04] MEDS ORDERED: predniSONE 20 MG TABLET (UD) ONE (00:33)
[2021-09-04] MEDS ORDERED: ALBUTEROL SO4 2.5/IPRATROPIUM 0.5 INH SOL 3 ML VIAL.NEB. NEB ONE (00:33)
[2021-09-04] MEDS: ALBUTEROL SO4 2.5/IPRATROPIUM 0.5 INH SOL 3 ML VIAL.NEB. NEB SCH ×2 (00:51→00:59)
== END 2021-09-04 02:02 | disposition home or self-care (01) ==
LOC: JER 23:02
PROC: 3E0F7GC Introduction of Other Therapeutic Substance into Respiratory Tract, Via Natural or Artificial Opening (ICD-10-PCS; principal; 2021-09-03)
DX: U07.1 COVID-19 (principal); J45.901 Unspecified asthma with (acute) exacerbation
CPT/HCPCS: 0241U-QW; 71046-TC-FY; 99284-25

== ENCOUNTER 2021-12-10 13:11 | Emergency (ER) | payer OTHER ==
[2021-12-10 13:40] VITALS: BP 144/88; PULSE 98; RESP 17; TEMP 98.1; BMI 47.7
[2021-12-10] MEDS ORDERED: KETOROLAC TROMETHAMINE 30 MG/1 ML VIAL IM ONE (13:53)
[2021-12-10] MEDS ORDERED: KETOROLAC TROMETHAMINE 30 MG/1 ML VIAL ONE (13:54)
== END 2021-12-10 15:42 | disposition home or self-care (01) ==
LOC: JERFT 13:11
PROC: 3E0233Z Introduction of Anti-inflammatory into Muscle, Percutaneous Approach (ICD-10-PCS; principal; 2021-12-10)
DX: S89.92XA Unspecified injury of left lower leg, initial encounter (principal); W01.0XXA Fall on same level from slipping, tripping and stumbling without subsequent striking against object, initial encounter
CPT/HCPCS: 73562-TC-LT-FY; 99284-25

== ENCOUNTER 2022-07-17 04:00 | Day surgery (SDC) | payer OTHER ==
[2022-07-15 11:40] VITALS: BMI 49.3
[2022-07-17] MEDS ORDERED: BUPIVACAINE HCL/PF 0.5% (5MG/ML) 10 ML VIAL ONE (07:40)
[2022-07-17] MEDS ORDERED: MIDAZOLAM HCL 2 MG/2 ML SINGLE DOSE VIAL ONE (07:51)
[2022-07-17] MEDS ORDERED: PROPOFOL 20 ML ONE ×2 (07:51→08:11)
[2022-07-17] MEDS ORDERED: LIDOCAINE HCL/PF 2% SDV 5ML VIAL ONE (07:55)
[2022-07-17] MEDS ORDERED: SUCCINYLCHOLINE CHLORIDE 200 MG/10 ML SYRINGE ONE (07:58)
[2022-07-17] MEDS ORDERED: DEXAMETHASONE SOD PHOSPHATE 4 MG/1 ML VIAL ONE (08:17)
[2022-07-17] MEDS ORDERED: GLYCOPYRROLATE 0.2 MG/1 ML VIAL ONE (08:20)
[2022-07-17] MEDS ORDERED: ceFAZolin SODIUM 1 GM VIAL IVPB ONE (08:23)
[2022-07-17] MEDS ORDERED: LIDOCAINE 1%/EPI 1:100000 (20 ML MULTI DOSE VIAL) IJ ONE (08:24)
[2022-07-17] MEDS ORDERED: BUPIVACAINE HCL/PF 0.5% (5MG/ML) 10 ML VIAL IJ ONE (08:26)
[2022-07-17] MEDS ORDERED: KETOROLAC TROMETHAMINE 30 MG/1 ML VIAL ONE (08:50)
[2022-07-17] MEDS ORDERED: ONDANSETRON 4 MG/2 ML VIAL ONE (08:50)
[2022-07-17] MEDS ORDERED: ONDANSETRON 4 MG/2 ML VIAL IVPUSH PRN (09:29)
[2022-07-17] MEDS ORDERED: oxyCODONE HCL 5 MG TABLET PO PRN (09:29)
[2022-07-17] MEDS ORDERED: LACTATED RINGERS SOLUTION 1,000 ML IV SCH (09:30)
[2022-07-17 10:09] VITALS: RESP 20
[2022-07-17 10:33] VITALS: BP 157/93
[2022-07-17 11:35] VITALS: PULSE 92; TEMP 96.5
== END 2022-07-17 11:52 | disposition home or self-care (01) ==
LOC: JASU-SURG 04:00
PROVIDERS: ATTEND Orthopaedic Surgery
PROC: 0SBD4ZZ Excision of Left Knee Joint, Percutaneous Endoscopic Approach (ICD-10-PCS; principal; 2022-07-17 08:00)
DX: S83.232A Complex tear of medial meniscus, current injury, left knee, initial encounter (principal); S86.919A Strain of unspecified muscle(s) and tendon(s) at lower leg level, unspecified leg, initial encounter
CPT/HCPCS: 94760

== ENCOUNTER 2022-11-24 00:01 | Emergency (ER) | payer OTHER ==
[2022-11-24 00:19] VITALS: PULSE 94; RESP 18; TEMP 98.8; BMI 50.1
[2022-11-24 00:25] VITALS: BP 148/98
[2022-11-24] MEDS ORDERED: ACETAMINOPHEN 500 MG TABLET (FP) PO ONE (00:58)
[2022-11-24] MEDS ORDERED: ACETAMINOPHEN 500 MG TABLET (FP) ONE (01:01)
== END 2022-11-24 02:10 | disposition home or self-care (01) ==
LOC: JER 00:01
DX: S81.011A Laceration without foreign body, right knee, initial encounter (principal); M25.562 Pain in left knee; R22.42 Localized swelling, mass and lump, left lower limb; W01.0XXA Fall on same level from slipping, tripping and stumbling without subsequent striking against object, initial encounter; Y92.480 Sidewalk as the place of occurrence of the external cause
CPT/HCPCS: 73610-TC-LT-FY; 73630-TC-LT; 99283-25

== ENCOUNTER 2023-01-13 11:11 | Emergency (ER) | payer OTHER ==
[2023-01-13 11:27] VITALS: BP 144/76; PULSE 77; RESP 16; TEMP 98.4; BMI 47.9
[2023-01-13] MEDS ORDERED: ALBUTEROL SO4 2.5/IPRATROPIUM 0.5 INH SOL 3 ML VIAL.NEB. NEB ONE ×3 (11:54→12:11)
[2023-01-13] MEDS ORDERED: LORATADINE 10 MG TABLET PO ONE (11:54)
[2023-01-13] MEDS ORDERED: LORATADINE 10 MG TABLET ONE ×2 (12:11→12:12)
== END 2023-01-13 13:21 | disposition home or self-care (01) ==
LOC: JERFT 11:11 → JER 11:11 → JERFT 13:21
PROC: 3E0F7GC Introduction of Other Therapeutic Substance into Respiratory Tract, Via Natural or Artificial Opening (ICD-10-PCS; principal; 2023-01-13)
DX: R05.9 Cough, unspecified (principal); J45.901 Unspecified asthma with (acute) exacerbation
CPT/HCPCS: 99283-25

== ENCOUNTER 2023-09-29 12:18 | Emergency (ER) | payer OTHER ==
[2023-09-29] MEDS ORDERED: IBUPROFEN 400 MG TABLET (FP) PO ONE (12:23)
[2023-09-29 12:36] VITALS: BP 125/79; PULSE 87; RESP 20; TEMP 97.4; BMI 44.3
[2023-09-29] MEDS ORDERED: KETOROLAC TROMETHAMINE 30 MG/1 ML VIAL IM ONE (12:55)
[2023-09-29] MEDS ORDERED: IBUPROFEN 600 MG TABLET (FP) PO ONE (13:05)
[2023-09-29] MEDS ORDERED: LIDOCAINE 5% TOPICAL PATCH ONE ×2 (13:05→13:31)
[2023-09-29] MEDS: LIDOCAINE 5% TOPICAL PATCH TP ONE (13:07)
[2023-09-29] MEDS: IBUPROFEN 600 MG TABLET (FP) PO ONE (13:17)
[2023-09-29] MEDS ORDERED: LIDOCAINE PATCH REMOVAL MC SCH (22:00)
== END 2023-09-29 14:31 | disposition home or self-care (01) ==
LOC: FER 12:18
DX: M54.2 Cervicalgia (principal); V49.40XA Driver injured in collision with unspecified motor vehicles in traffic accident, initial encounter; Y92.410 Unspecified street and highway as the place of occurrence of the external cause
CPT/HCPCS: 99283-25